=== PATIENT | female | born 1965 | race Asian ===

== ENCOUNTER 2018-11-27 06:04 | Day surgery (SDC) | payer BC ==
[2018-11-27] MEDS ORDERED: FENTAnyl 50 MCG/ML VIAL (08:19)
[2018-11-27] MEDS ORDERED: MIDAZOLAM 1 MG/ML 2 ML INJ (08:20)
== END 2018-11-27 12:22 | disposition home or self-care (01) ==
LOC: GIL 06:04
DX: K29.50 Unspecified chronic gastritis without bleeding (principal)
CPT/HCPCS: 43239; 88305; 88312